=== PATIENT | female | born 1960 | race Caucasian/White ===

== ENCOUNTER 2018-01-26 08:51 | Emergency (ER) | payer OTHER ==
[~2018-01-26] VITALS: Ht 160 cm; Wt 61.2 kg
[2018-01-26] MEDS ORDERED: IMITREX100 MG PO (09:28)
[2018-01-26] MEDS ORDERED: AMBIEN CR6.25 MG PO (09:28)
[2018-01-26] MEDS ORDERED: VENLAFAXINE HCL75 MG PO (09:28)
[2018-01-26 10:15] LABS: APPEARANCE CLEAR ((CLEAR)); BILIRUBIN NEGATIVE; BLOOD MODERATE; COLOR YELLOW ((YELLOW)); GLUCOSE (STRIP) NEGATIVE; KETONES NEGATIVE; LEUKOCYTES NEGATIVE; NITRITE NEGATIVE; PROTEIN (STRIP) NEGATIVE; SPECIFIC GRAVITY 1.014 (1.000-1.030); UROBILINOGEN 0.2 MG/DL (0.2-1.0)
[2018-01-26 10:18] LABS: BACTERIA NONE SEEN /HPF; EPITHELIAL CELLS RARE /HPF; MUCUS TRACE /LPF; WHITE BLOOD CELLS 0-5 /HPF (0-5)
[2018-01-26] MEDS ORDERED: ZOFRAN ODT8 MG PO (11:35)
[2018-01-26] MEDS ORDERED: VENTOLIN HFA18 GM IH (11:35)
[2018-01-26] MEDS ORDERED: TESSALON200 MG PO (11:35)
[2018-01-26 11:54] VITALS: BP 98/59
== END 2018-01-26 12:02 | disposition home or self-care (01) ==
LOC: EME 08:51
PROVIDERS: Physician Assistant
DX: J20.9 Acute bronchitis, unspecified (principal); M54.5 Low back pain; G43.909 Migraine, unspecified, not intractable, without status migrainosus; F17.200 Nicotine dependence, unspecified, uncomplicated
CPT/HCPCS: 71046; 81003; 94640; 94664; 99281; 99284